=== PATIENT | female | born 1955 | race African-American/Black ===

== ENCOUNTER 2016-09-24 23:16 | Emergency (ER) | payer BC, MEDICAID ==
[~2016-09-24] VITALS: Ht 162.6 cm; Wt 87.0 kg
[2016-09-24] MEDS ORDERED: MORPHINE SULFATE 4 MG/ML CPJ (NOT FOR IM USE) IV STA (23:37)
[2016-09-24] MEDS ORDERED: ONDANSETRON HCL 4MG/2ML VIAL IV STA (23:37)
[2016-09-24] MEDS ORDERED: NITROGLYCERIN 0.4MG TABLET SL SL PRN (23:45)
[2016-09-25 00:57] LABS: BASOPHILS % 1.2 % (0.0-2.0); DIFFERENTIAL COMMENT 0; EOSINOPHILS % 2.3 % (0.0-5.0); HEMATOCRIT. 35.6 % (36.0-48.0); HEMOGLOBIN. 12.1 g/dL (12.0-16.0); LYMPHOCYTES % 35.7 % (20.0-50.0); MEAN CORPUSCULAR HEMOGLOBIN 26.8 pg (28.0-32.0); MEAN CORPUSCULAR HGB CONC 34.1 g/dL (31.0-37.0); MEAN CORPUSCULAR VOLUME 78.6 fL (81.0-99.0); MEAN PLATELET VOLUME 8.2 fl (7.4-10.4); MONOCYTES % 7.2 % (2.0-8.0); NEUTROPHILS % 53.6 % (40.0-76.0); PLATELET 242 x1000/uL (130-400); RED BLOOD CELL COUNT 4.53 mill/uL (4.2-5.4); RED CELL DISTRIBUTION WIDTH 13.1 % (11.6-14.6)
[2016-09-25 01:04] LABS: PARTIAL THROMBOPLASTIN TIME 28.4 sec (24.0-34.0); PROTHROMBIN TIME 10.7 sec
[2016-09-25 01:10] LABS: ALANINE AMINOTRANSFERASE 63 IU/L (13-61); ALBUMIN 3.7 g/dL (3.4-5.0); ANION GAP 12; CALCIUM 9.3 mg/dL (8.5-10.1); CARBON DIOXIDE 34 mEq/L (21-32); CHLORIDE 98 mEq/L (98-107); INDEX HEMOLYSI 1 (1-3); INDEX ICTERIC 1 (1-4); INDEX LIPEMIC 1 (1-3); LIPASE 111 IU/L (73-393); TROPONIN I < 0.02 ng/mL (0.00-0.04); UREA NITROGEN BLOOD 10 mg/dL (7-21); eGFR > 60 mL/min (>60)
[2016-09-25] MEDS ORDERED: KETOROLAC 30MG/ML VIAL IV ONE (01:30)
[2016-09-25] MEDS ORDERED: IBUPROFEN 800MG TABLET PO ONE (04:00)
[2016-09-25 04:25] VITALS: BP 120/68
== END 2016-09-25 05:07 | disposition home or self-care (01) ==
LOC: ER 23:26
DX: R07.9 Chest pain, unspecified (principal); R06.02 Shortness of breath; I10 Essential (primary) hypertension; E78.00 Pure hypercholesterolemia, unspecified; E11.9 Type 2 diabetes mellitus without complications; Z90.710 Acquired absence of both cervix and uterus; Z98.890 Other specified postprocedural states; Z88.6 Allergy status to analgesic agent; V89.2XXA Person injured in unspecified motor-vehicle accident, traffic, initial encounter; Y93.89 Activity, other specified; Y92.89 Other specified places as the place of occurrence of the external cause; Y99.8 Other external cause status
CPT/HCPCS: 36415; 71010; 80053; 83690; 84484; 85025; 85610; 85730; 93005; 99285; Z7610; J1885; J2270; J2405

== ENCOUNTER 2018-08-11 05:09 | Inpatient (IN) | payer MEDICARE, MEDICAID ==
[~2018-08-11] VITALS: Ht 160 cm; Wt 99.8 kg
[2018-08-11] VITALS (59 sets, daily range): BP systolic 42–168; BP diastolic 17–152
[~2018-08-11 05:09] MED LIST: ALBU18HF2 IH; ALPR0.5T PO; AMLO5TAB88 PO; ASPI-1159 PO; CELE100C PO; DOCU-286 PO; GABA-531 PO; HYDR-4005 PO; HYDR25TA PO; IBUP-2271 PO; METF-414 PO
[2018-08-11] MEDS ORDERED: THROMBIN (BOVINE) 5000 UNITS/VIAL TOP ONE ×2 (06:16→06:17)
[2018-08-11] MEDS ORDERED: LIDOCAINE HCL/EPINEPHRINE 1%-EPI 1:100,000 20 ML VIAL ONE (06:16)
[2018-08-11] MEDS ORDERED: BACITRACIN 50,000 UNITS/VIAL ONE (06:17)
[2018-08-11] MEDS ORDERED: MIDAZOLAM HCL 2 MG/2 ML VIAL ONE (06:39)
[2018-08-11] MEDS ORDERED: ROCURONIUM BROMIDE 10MG/ML VIAL 5ML IV ONE (06:39)
[2018-08-11] MEDS ORDERED: FENTANYL CITRATE/PF 50MCG/ML 5ML VIAL ONE (06:39)
[2018-08-11] MEDS ORDERED: PROPOFOL 200MG/20ML VIAL IV ONE (06:39)
[2018-08-11] MEDS ORDERED: CEFAZOLIN SODIUM 1000MG/VIAL ONE (06:43)
[2018-08-11] MEDS ORDERED: SODIUM CHLORIDE 0.9% 10ML VIAL ONE (06:44)
[2018-08-11] MEDS ORDERED: ONDANSETRON HCL 4MG/2ML INJ IV PRN (07:15)
[2018-08-11] MEDS: DEXT 5%/LACTATED RINGERS 1,000 ML IV SCH ×2 (07:15→19:38)
[2018-08-11] MEDS ORDERED: HYDROCODONE/APAP 7.5/325MG 1 TAB TABLET PO PRN (07:15)
[2018-08-11] MEDS ORDERED: MORPHINE SULFATE 4 MG/ML CPJ (NOT FOR IM USE) IV ONE (07:29)
[2018-08-11] MEDS ORDERED: MORPHINE SULFATE 10 MG/ML CPJ ONE (07:30)
[2018-08-11] MEDS ORDERED: NEOSTIGMINE METHYLSULFATE 1MG/ML 10 ML VIAL ONE (09:06)
[2018-08-11] MEDS ORDERED: GLYCOPYRROLATE 0.2 MG/ML 2ML VIAL ONE ×2 (09:06→09:07)
[2018-08-11] MEDS ORDERED: PHENYLEPHRINE HCL 10 MG/ML 1ML (IV VIAL) IV ONE (09:16)
[2018-08-11] MEDS ORDERED: NICARDIPINE 100 MG in SODIUM CHLORIDE 0.9% 60 ML IV PRN (10:00)
[2018-08-11] MEDS ORDERED: DIPHENHYDRAMINE INJ IV PRN (10:30)
[2018-08-11] MEDS ORDERED: NALOXONE INJ IV PRN (10:30)
[2018-08-11] MEDS ORDERED: ONDANSETRON INJ IV PRN (10:30)
[2018-08-11] MEDS: MORPHINE PCA 50MG/50ML IV PRN (11:00)
[2018-08-11] MEDS: MORPHINE SULFATE 4 MG/ML CPJ (NOT FOR IM USE) IV PRN ×4 (11:06→22:57)
[2018-08-11] MEDS ORDERED: CEFAZOLIN SODIUM 1000MG/VIAL IV SCH (14:00)
[2018-08-11] MEDS: CEFAZOLIN 1000MG PREMIX 50 ML IV SCH ×2 (14:14→22:28)
[2018-08-11] MEDS ORDERED: DEXTROSE 50% WATER 50ML SYRINGE IV PRN (14:45)
[2018-08-11] MEDS ORDERED: CLONIDINE 0.1MG TABLET PO PRN (14:45)
[2018-08-11] MEDS ORDERED: GUAIFENESIN 200MG/10ML SUGAR FREE UDC PO PRN (14:45)
[2018-08-11] MEDS ORDERED: ACETAMINOPHEN 650MG SUPP PR PRN (14:45)
[2018-08-11] MEDS ORDERED: DIPHENHYDRAMINE 50MG/ML VIAL IV PRN (14:45)
[2018-08-11] MEDS ORDERED: DOCUSATE SODIUM 100MG CAPSULE PO PRN (14:45)
[2018-08-11] MEDS ORDERED: MAGNESIUM/ALUMINUM HYDROXIDE/SIMETHICONE 30ML UDC PO PRN (14:45)
[2018-08-11] MEDS ORDERED: ACETAMINOPHEN 650MG/20.3ML UDC PO PRN (14:45)
[2018-08-11 16:25] LABS: CLARITY URINE CLEAR (CLEAR); COLOR URINE YELLOW (YELLOW); KETONES URINE NEGATIVE (NEGATIVE); LEUKOCYTE ESTERASE URINE NEGATIVE (NEGATIVE); NITRITE URINE NEGATIVE (NEGATIVE); OCCULT BLOOD URINE NEGATIVE (NEGATIVE); PROTEIN URINE NEGATIVE (NEGATIVE); SPECIFIC GRAVITY URINE 1.016 (1.005-1.030); UROBILINOGEN URINE 0.2 E.U./dL (0.2-1.0)
[2018-08-11] MEDS: BLOOD SUGAR DIAGNOSTIC STRIP TEST SCH ×2 (16:30→21:00)
[2018-08-11] MEDS: INSULIN LISPRO 100 UNITS/ML SUBCUT SCH ×2 (17:00→21:00)
[2018-08-11 19:27] LABS: HEMATOCRIT 34.3 % (36.0-48.0); HEMOGLOBIN 11.5 g/dL (12.0-16.0); MEAN CORPUSCULAR VOLUME 80.8 fL (81.0-99.0); PLATELET 231 x1000/uL (130-400); RED BLOOD CELL COUNT 4.24 mill/uL (4.2-5.4); RED CELL DISTRIBUTION WIDTH 13.9 % (11.6-14.6)
[2018-08-11 19:31] LABS: CHLORIDE 102 mEq/L (98-107)
[2018-08-11] MEDS ORDERED: MORPHINE SULFATE 4 MG/ML CPJ (NOT FOR IM USE) IV NR (20:30)
[2018-08-11] MEDS: HYDROCODONE/ACETAMINOPHEN 10/325MG TABLET PO PRN (20:55)
[2018-08-12] VITALS (89 sets, daily range): BP systolic 44–148; BP diastolic 34–115
[2018-08-12] MEDS: DEXT 5%/LACTATED RINGERS 1,000 ML IV SCH ×2 (03:16→07:15)
[2018-08-12] MEDS: MORPHINE SULFATE 4 MG/ML CPJ (NOT FOR IM USE) IV PRN ×6 (03:17→22:17)
[2018-08-12] MEDS: HYDROCODONE/ACETAMINOPHEN 10/325MG TABLET PO PRN ×2 (04:28→09:02)
[2018-08-12] MEDS: MORPHINE PCA 50MG/50ML IV PRN (04:30)
[2018-08-12 04:55] LABS: HEMOGLOBIN 10.6 g/dL (12.0-16.0); MEAN CORPUSCULAR VOLUME 79.4 fL (81.0-99.0); PLATELET 210 x1000/uL (130-400); RED BLOOD CELL COUNT 3.91 mill/uL (4.2-5.4); RED CELL DISTRIBUTION WIDTH 13.8 % (11.6-14.6)
[2018-08-12 05:37] LABS: CHLORIDE 104 mEq/L (98-107)
[2018-08-12 06:01] LABS: T4 FREE 0.89 ng/dL (0.76-1.46)
[2018-08-12] MEDS: CEFAZOLIN 1000MG PREMIX 50 ML IV SCH ×3 (06:09→21:00)
[2018-08-12] MEDS: BLOOD SUGAR DIAGNOSTIC STRIP TEST SCH ×4 (06:12→20:59)
[2018-08-12] MEDS: INSULIN LISPRO 100 UNITS/ML SUBCUT SCH ×4 (06:15→20:59)
[2018-08-12] MEDS ORDERED: POTASSIUM CHLORIDE INJ 30 MEQ in DEXT 5% WATER 250 ML IV SCH (10:00)
[2018-08-12] MEDS: HYDROCODONE/APAP 7.5/325MG 1 TAB TABLET PO PRN ×2 (12:11→18:24)
[2018-08-13] VITALS (22 sets, daily range): BP systolic 109–148; BP diastolic 36–97
[2018-08-13] MEDS: HYDROCODONE/APAP 7.5/325MG 1 TAB TABLET PO PRN ×4 (00:43→20:56)
[2018-08-13] MEDS: TRAMADOL 50MG TABLET PO PRN (01:13)
[2018-08-13] MEDS: DEXT 5%/LACTATED RINGERS 1,000 ML IV SCH ×2 (01:56→10:44)
[2018-08-13] MEDS: MORPHINE SULFATE 4 MG/ML CPJ (NOT FOR IM USE) IV PRN ×2 (03:49→10:45)
[2018-08-13 05:40] LABS: HEMATOCRIT 34.3 % (36.0-48.0); HEMOGLOBIN 11.4 g/dL (12.0-16.0); MEAN CORPUSCULAR HEMOGLOBIN 26.7 pg (28.0-32.0); MEAN CORPUSCULAR VOLUME 80.1 fL (81.0-99.0); PLATELET 204 x1000/uL (130-400); RED BLOOD CELL COUNT 4.28 mill/uL (4.2-5.4); RED CELL DISTRIBUTION WIDTH 13.9 % (11.6-14.6)
[2018-08-13 05:46] LABS: INR 1.1; PROTHROMBIN TIME 10.9 sec (9.1-11.1)
[2018-08-13 05:47] LABS: CHLORIDE 102 mEq/L (98-107)
[2018-08-13] MEDS: CEFAZOLIN 1000MG PREMIX 50 ML IV SCH ×2 (06:24→15:46)
[2018-08-13] MEDS: INSULIN LISPRO 100 UNITS/ML SUBCUT SCH ×4 (06:24→21:00)
[2018-08-13] MEDS: BLOOD SUGAR DIAGNOSTIC STRIP TEST SCH ×4 (06:30→21:06)
[2018-08-13] MEDS: LACTULOSE 20G/30ML UDC PO SCH ×3 (15:46→20:56)
[2018-08-13] MEDS: DOCUSATE SODIUM 100MG CAPSULE PO SCH (17:55)
[2018-08-13] MEDS: POLYETHYLENE GLYCOL 3350 (17GM) 1 DOSE PACK PO SCH (20:56)
[2018-08-13] MEDS: MORPHINE PCA 50MG/50ML IV PRN (21:49)
[2018-08-14] VITALS: BP 142/61
[2018-08-14] MEDS: DEXT 5%/LACTATED RINGERS 1,000 ML IV SCH (00:27)
[2018-08-14] MEDS: HYDROCODONE/APAP 7.5/325MG 1 TAB TABLET PO PRN ×4 (03:30→23:08)
[2018-08-14 03:47] VITALS: BP 144/63
[2018-08-14 06:38] LABS: HEMATOCRIT 33.9 % (36.0-48.0); HEMOGLOBIN 11.1 g/dL (12.0-16.0); MEAN CORPUSCULAR HEMOGLOBIN 26.4 pg (28.0-32.0); MEAN CORPUSCULAR VOLUME 80.9 fL (81.0-99.0); PLATELET 240 x1000/uL (130-400); RED BLOOD CELL COUNT 4.19 mill/uL (4.2-5.4); RED CELL DISTRIBUTION WIDTH 13.8 % (11.6-14.6)
[2018-08-14] MEDS: PANTOPRAZOLE 40MG DR TABLET PO SCH ×2 (06:49→09:02)
[2018-08-14] MEDS: INSULIN LISPRO 100 UNITS/ML SUBCUT SCH ×3 (06:49→21:00)
[2018-08-14] MEDS: BLOOD SUGAR DIAGNOSTIC STRIP TEST SCH ×4 (06:49→20:26)
[2018-08-14 06:56] LABS: CHLORIDE 105 mEq/L (98-107)
[2018-08-14 08:00] VITALS: BP 147/71
[2018-08-14] MEDS: DOCUSATE SODIUM 100MG CAPSULE PO SCH ×2 (09:00→16:22)
[2018-08-14] MEDS: BISACODYL 10MG SUPP PR SCH (09:00)
[2018-08-14] MEDS: LACTULOSE 20G/30ML UDC PO SCH ×2 (09:00→13:00)
[2018-08-14 12:00] VITALS: BP 139/70
[2018-08-14] MEDS: TRAMADOL 50MG TABLET PO PRN (15:21)
[2018-08-14 16:00] VITALS: BP 130/70
[2018-08-14 20:00] VITALS: BP 120/54
[2018-08-14] MEDS: POLYETHYLENE GLYCOL 3350 (17GM) 1 DOSE PACK PO SCH (21:00)
[2018-08-15] VITALS: BP 116/57
[2018-08-15 04:00] VITALS: BP 118/50
[2018-08-15] MEDS: TRAMADOL 50MG TABLET PO PRN (04:26)
[2018-08-15] MEDS: HYDROCODONE/APAP 7.5/325MG 1 TAB TABLET PO PRN ×2 (06:17→12:27)
[2018-08-15] MEDS: BLOOD SUGAR DIAGNOSTIC STRIP TEST SCH ×2 (06:29→12:20)
[2018-08-15] MEDS: INSULIN LISPRO 100 UNITS/ML SUBCUT SCH ×2 (07:50→12:50)
[2018-08-15 08:00] VITALS: BP 126/87
[2018-08-15] MEDS: BISACODYL 10MG SUPP PR SCH (09:00)
[2018-08-15] MEDS: DOCUSATE SODIUM 100MG CAPSULE PO SCH (09:00)
[2018-08-15] MEDS: MORPHINE SULFATE 4 MG/ML CPJ (NOT FOR IM USE) IV PRN (10:57)
[2018-08-15 12:00] VITALS: BP 123/77
[2018-08-15] MEDS ORDERED: NALOXONE HCL 0.4 MG/ML 1ML VIAL IV PRN (13:30)
[2018-08-15] MEDS ORDERED: MORPHINE SULFATE 4 MG/ML CPJ (NOT FOR IM USE) IV PRN (14:00)
[2018-08-15] MEDS ORDERED: BISACODYL 5MG TABLET PO PRN (15:15)
[2018-08-15 15:49] VITALS: BP 123/77
[2018-08-15] MEDS ORDERED: HYDROCODONE/APAP 7.5/325MG 1 TAB TABLET PO PRN (18:00)
== END 2018-08-15 16:33 | DRG 460 ==
LOC: OR 05:09 → MICUSO 05:10 → 6EST 08-13 12:00
PROVIDERS: ADMIT Internal Medicine; ATTEND Internal Medicine
PROC: 0SG00J1 Fusion of Lumbar Vertebral Joint with Synthetic Substitute, Posterior Approach, Posterior Column, Open Approach (ICD-10-PCS; principal; 2018-08-11)
DX: M48.061 Spinal stenosis, lumbar region without neurogenic claudication (principal); G82.20 Paraplegia, unspecified; E44.1 Mild protein-calorie malnutrition; E11.9 Type 2 diabetes mellitus without complications; M54.16 Radiculopathy, lumbar region; M43.16 Spondylolisthesis, lumbar region; E78.5 Hyperlipidemia, unspecified; E87.6 Hypokalemia; I10 Essential (primary) hypertension; D64.9 Anemia, unspecified; D72.829 Elevated white blood cell count, unspecified; E66.9 Obesity, unspecified; E78.00 Pure hypercholesterolemia, unspecified; G89.4 Chronic pain syndrome; K59.00 Constipation, unspecified; F41.9 Anxiety disorder, unspecified; M10.9 Gout, unspecified; R26.9 Unspecified abnormalities of gait and mobility; Z88.8 Allergy status to other drugs, medicaments and biological substances; Z82.49 Family history of ischemic heart disease and other diseases of the circulatory system; Z83.3 Family history of diabetes mellitus; Z68.39 Body mass index [BMI] 39.0-39.9, adult
CPT/HCPCS: 36415; 71045; 72100; 76000; 80048; 82962; 83036; 84439; 84443; 85027; 86850; 86900; 93005; 93970; 95863; 95925; 95926; 95928; 95929; 97162; 97166; 97530; A6261; C1713; J0690; J1815; J2250; J2270; J2370; J2704; J2710; J3010; J3480; J3490; J7050; J7060; J7121